=== PATIENT | male | born 1945 | race Caucasian/White ===

== ENCOUNTER 2018-05-03 21:34 | Emergency (ER) | payer OTHER ==
[~2018-05-03] VITALS: Ht 180.3 cm; Wt 91.0 kg
[2018-05-03 20:52] VITALS: BP 125/70; PULSE 60; TEMP 36.5; O2SAT 98; Ht 180.3 cm; Wt 91.0 kg
[~2018-05-03 21:34] MED LIST: AMLO5TAB3 PO; CRG3125 PO; DOXA-10 PO; DUTA0.5C PO; LOSA1TAB38 PO; LPT/40 PO; PRT40 PO
[2018-05-03] MEDS ORDERED: DIPHTHERIA/TETANUS/PERTUSSIS 0.5 ML SYR/VIAL IM. ONE (21:45)
--- NOTE | 2018-05-03 23:00 | EMERGENCY ROOM VISIT NOTE ---
ED Visit Note First contact with patient: 21:44 CHIEF COMPLAINT: Finger laceration HISTORY OF PRESENT ILLNESS: This 72-year-old patient presents to the emergency department after cutting the right second finger on a knife just prior to arrival. The bleeding has not stopped. Denies weakness or numbness of the finger. The patient has full range of motion of the fingers. The patient rates the pain as mild and 2/10. The patient denies any other injuries. The patient' s tetanus shot is not up to date. REVIEW OF SYSTEMS: A 6 system review of systems was completed with positives and pertinent negatives listed in the HPI. ALLERGIES: None MEDICATIONS: Reviewed PMH: Medical Problems: (1) High cholesterol Status: Chronic (2) Hypertension Status: Chronic (3) Kidney stone Status: Resolved SOCIAL HISTORY: No drug use PHYSICAL EXAM: Vital Signs: Reviewed Nurse's notes, vital signs stable. GENERAL : Pleasant male, in no acute distress, well developed, well nourished. SKIN: There is a 3 cm long laceration on the lateral distal aspect of the right second finger. The edges gape apart with traction. There is no foreign material in the wound and it looks clean. There is bleeding. No deep structures such as tendons, bones, or significant blood vessels are seen in the base of the wound. Extension and flexion of the finger is full and strong. Full range of motion of the wrist and other fingers. Capillary refill less than 2 seconds. Normal sensation to light and sharp touch. EMERGENCY DEPARTMENT COURSE: I examined the patient. Using sterile technique the wound was cleansed with Betadine. Patient patient was offered a digital block and a local but declined. He prefers to do the procedure without lidocaine. The area was sterilely draped. Once the patient was anesthetized, the wound was copiously irrigated under pressure with sterile saline. The wound was explored and there were no deep structures injured. The laceration was repaired using 6 simple interrupted 5-0 nylon sutures. The patient tolerated the procedure well. Hemostasis was achieved. The area was cleaned with sterile saline and dressed with bacitracin ointment and bandage. The patient was given a tetanus booster. The patient was discharged home in good condition. Differential diagnosis includes superficial laceration, complex laceration, tendon injury, vascular injury and other etiologies were considered. DIAGNOSIS: Finger laceration, second finger right hand, initial treatment DISCHARGE INSTRUCTIONS & TREATMENT: As below Problem List Medical Problems: (1) High cholesterol Status: Chronic (2) Hypertension Status: Chronic (3) Kidney stone Status: Resolved Current/Historical Medications Scheduled Amlodipine (Norvasc), 5 MG PO DAILY Atorvastatin (Lipitor), 40 MG PO DAILY Carvedilol (Carvedilol), 3.125 MG PO BID Doxazosin Mesylate (Doxazosin Mesylate), 8 MG PO HS Dutasteride (Avodart), 0.5 MG PO DAILY Losartan Potassium (Cozaar), 100 MG PO HS Pantoprazole (Pantoprazole Sodium), 40 MG PO DAILY Allergies Coded Allergies: No Known Allergies (Unverified Allergy, Mild, 09/12/08) Vital Signs Date Time Temp Pulse Resp B/P (MAP) Pulse Ox O2 Delivery O2 Flow Rate FiO2 05/03/18 20:52 36.5 60 18 125/70 98 Room Air Medications Administered Medications (Trade) Dose Ordered Sig/Aicha Route Start Time Stop Time Status Last Admin Dose Admin Diphtheria/ Pertussis/Tetanus Vacc (Adacel Inj) 0.5 ml ONCE ONCE IM. 05/03/18 21:45 05/03/18 21:46 DC 05/03/18 22:05 0.5 ML Departure Information Impression Primary Impression: Finger laceration Dispostion Home / Self-Care Condition GOOD Forms HOME CARE DOCUMENTATION FORM, IMPORTANT VISIT INFORMATION Patient Instructions [facility], ED Laceration All Additional Instructions You received a tetanus shot today. This is good for 10 years. Notify your family doctor of this. Keep wound clean and dry. Do not allow any crusting or dried blood to accumulate on sutures. If this occurs, use a 1:1 solution of hydrogen peroxide/ water on a Q-tip to clean the wound. Use an antibiotic ointment for 3-4 days, then let wound dry. Suture removal in 10-12 days. Return sooner for any signs of infection (increasing redness, swelling, drainage). Ice and elevate for swelling and pain. Ibuprofen 600 mg and Tylenol 1000 mg every 6 hrs for pain. Keep covered when in sun until sutures removed then SPF 50 or higher for one year. Vitamin E oil if desired two weeks after suture removal for reduction of scar.
== END 2018-05-03 22:06 | disposition home or self-care (01) ==
LOC: EDBD 21:34 → EDSEX 21:34 → C.EDD 21:40
DX: S61.210A Laceration without foreign body of right index finger without damage to nail, initial encounter (principal); W26.0XXA Contact with knife, initial encounter; I10 Essential (primary) hypertension; E78.00 Pure hypercholesterolemia, unspecified; Z23 Encounter for immunization; Z79.899 Other long term (current) drug therapy